=== PATIENT | female | born 1985 | race Caucasian/White ===

== ENCOUNTER 2021-06-01 18:29 | Emergency (ER) | payer SELFPAY ==
[2021-06-01 19:54] VITALS: BP 134/80; PULSE 100; RESP 20; TEMP 98.5
--- NOTE | 2021-06-01 19:59 | ED ---
Alcohol HPI - General Chief Complaint: Alcohol Stated Complaint: OWI Time Seen by Provider: 06/01/21 19:39 Source: patient, police, RN notes reviewed Mode of arrival: ambulatory Limitations: no limitations - History of Present Illness Initial Comments: Patient is a 36-year-old female presenting to the emergency department in police custody for medical clearance. Patient was a rested for an OWI, she blew a 0.36 at the police department and they brought her in for medical clearance. She is in no acute distress, she is cooperating. She denies any pain anywhere. She states she's only had a few small tiny bottles of liquor today. She does drink daily. She denies any pain, no chest pain or shortness of breath, no nausea or vomiting. She denies any other drug use. She denies being . Denies any suicidal or homicidal thoughts. She has no complaints today. Her vital signs are stable upon arrival. - Related Data Allergies Allergy/AdvReac Type Severity Reaction Status Date / Time No Known Allergies Allergy Verified 06/01/21 18:50 Review of Systems ROS Statement: Those systems with pertinent positive or pertinent negative responses have been documented in the HPI. ROS Other: All systems not noted in ROS Statement are negative. Past Medical History Past Medical History: No Reported History Past Surgical History: No Surgical Hx Reported Smoking Status: Never smoker Past Alcohol Use History: Daily Past Drug Use History: None Reported General Exam - General Exam Comments Initial Comments: GENERAL: Patient is well-developed and well-nourished. Patient is nontoxic and in no acute distress, does appear intoxicated. HEAD: Atraumatic, normocephalic. EYES: Pupils equal round and reactive to light, extraocular movements intact, sclera anicteric, conjunctiva are normal. Eyelids were unremarkable. ENT: Nares patent, oropharynx clear without exudates. Moist mucous membranes. NECK: Normal range of motion, supple without lymphadenopathy or JVD. LUNGS: Unlabored respirations. Breath sounds clear to auscultation bilaterally and equal. No wheezes rales or rhonchi. HEART: Regular rate and rhythm without murmurs, rubs or gallops. ABDOMEN: Soft, nontender, normoactive bowel sounds. No guarding, no rebound. No masses appreciated. MUSCULOSKELETAL: Normal extremities with adequate strength and normal range of motion, no pitting or edema. No clubbing or cyanosis. NEUROLOGICAL: Patient is alert and oriented x 3. Normal speech, normal gait. SKIN: Warm, Dry, normal turgor, no rashes or lesions noted. Limitations: no limitations Course Vital Signs 06/01/21 06/01/21 18:47 19:53 Temperature 98.4 F 98.5 F Pulse Rate 101 H 100 Respiratory 18 20 Rate Blood Pressure 134/80 O2 Sat by Pulse 97 95 Oximetry Medical Decision Making - Medical Decision Making Patient is a 36-year-old female here in police custody for OWI, she blew a 0.36 the police department, came in for medical clearance. Patient is in no acute distress, exam is unremarkable, she has no complaints. Her vital signs are stable. We did a BAT, its 0.303. Patient is medically cleared for detention. The chief of police is also in agreement with this. She is stable for discharge and will be discharged please custody. Case discussed with Dr. Preston. Disposition Clinical Impression: Medical clearance for incarceration, Alcoholic intoxication Disposition: HOME SELF-CARE Condition: Stable Instructions (If sedation given, give patient instructions): Alcohol Intoxication (ED) Additional Instructions: Please return to the Emergency Department if symptoms worsen or any other concerns. Patient is medically clear for detention. Is patient prescribed a controlled substance at d/c from ED?: No Referrals: None,Stated [Primary Care Provider] - 1-2 days Time of Disposition: 19:59
== END 2021-06-01 20:11 | disposition home or self-care (01) ==
LOC: EC 18:29
DX: Z02.89 Encounter for other administrative examinations (principal); F10.129 Alcohol abuse with intoxication, unspecified; Y90.9 Presence of alcohol in blood, level not specified
CPT/HCPCS: 99282